=== PATIENT | female | born 2000 | race African-American/Black ===

== ENCOUNTER → 2023-10-28 | Emergency (ER) | payer OTHER, SELFPAY ==
--- NOTE | 2023-10-28 23:35 | EDPHYS ---
Physician Documentation [facility] Name: Anna Metzger Age: 23 yrs Sex: Female : 2000 Arrival Date: 10/28/2023 Time: 20:38 Bed 11 Private MD: ED Physician Robert Jasso HPI: 10/27 21:24 This 23 yrs old Black Female presents to ER via Wheelchair with complaints of Vaginal sb4 Pain. 21:25 the patient presents with a swollen area of the groin. Description: draining, sb4 erythematous, swollen. Onset: The symptoms/episode began/occurred 4 day(s) ago. Possible cause(s): ingrown hair. Associated signs and symptoms: Pertinent positives: drainage, erythema, Pertinent negatives: fever. Modifying factors: the symptoms are alleviated by nothing, the symptoms are aggravated by nothing. The patient has not experienced similar symptoms in the past. The patient has not recently seen a physician. 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 - Social history:: Smoking status: Patient reports the use of cigarette tobacco products, denies chronic smoking, but will smoke occasionally. ROS: 21:25 Constitutional: Negative for fever, chills, and weight loss, sb4 21:25 : Positive for pelvic pain, 21:25 All other systems are negative, Exam: 21:25 Constitutional: This is a well developed, well nourished patient who is awake, alert, sb4 and in no acute distress. Head/Face: Normocephalic, atraumatic. Eyes: Extra-ocular motions intact. Periorbital areas with no swelling, redness, or edema. ENT: Mucous membranes moist. Vital Signs: 21:15 BP 100 / 62; Pulse 104; Resp 17; Temp 98.5(O); Pulse Ox 100% on R/A; Weight 70.31 kg; kd3 Height 5 ft. 8 in. ; 21:15 Body Mass Index 23.57 (70.31 kg, 172.72 cm) kd3 MDM: 21:15 Patient medically screened. sb4 23:32 Data reviewed: vital signs, nurses notes, and as a result, I will discharge patient. sb4 Historians other than the Patient: Friend: friend. 23:35 ED course: patient left after my assessment in triage. I was unable to perform a full sb4 exam given the lack of privacy in triage and therefore unable to determine the extent/severity of her complaint. 10/27 21:23 Order name: Genny. Order: gown sb4 Administered Medications: No medications were administered Disposition: 10/28 04:04 Co-signature as Attending Physician, Robert Jasso MD I agree with the assessment sp4 and plan of care. I reviewed the patient's care provided by the Advanced Practice Provider and agree with the diagnosis and treatment plan. Disposition Summary: 10/28/23 23:35 Discharge Ordered Notes: Location: Home sb4 Condition: Undetermined sb4 Diagnosis - labial abscess - suspected sb4 Followup: sb4 - With: Emergency Department - When: As needed - Reason: Trouble breathing, Worsening of condition Forms: - Medication Reconciliation Form sb4 - Thank You Letter sb4 - Antibiotic Education sb4 - Prescription Opioid Use sb4 - Patient Portal Instructions sb4 - Leadership Thank You Letter sb4 Signatures: Yadira Armas, RN RN kd3 Marta Philippe PA-C PAGordon sb4 Robert Jasso MD MD sp4 Corrections: (The following items were deleted from the chart) 10/27 23:35 23:35 ED course: patient left after my assessment in triage. I was unable to perform a sb4 full exam given the lack of privacy in triage. sb4
--- NOTE | 2023-10-28 23:35 | ER ---
Nurse's Notes [facility] Name: Anna Metzger Age: 23 yrs Sex: Female : 2000 Arrival Date: 10/28/2023 Time: 20:38 Bed 11 Private MD: Diagnosis: labial abscess - suspected Presentation: 10/27 21:16 Coronavirus screen: Vaccine status: Patient reports being unvaccinated. Ebola Screen: kd3 No symptoms or risks identified at this time. Initial Sepsis Screen: Does the patient meet any 2 criteria? No. Patient's initial sepsis screen is negative. Does the patient have a suspected source of infection? No. Patient's initial sepsis screen is negative. Risk Assessment: Do you want to hurt yourself or someone else? Patient reports no desire to harm self or others. Onset of symptoms was October 24, 2023. 21:16 Method Of Arrival: Wheelchair kd3 21:18 Chief complaint: Chief complaint: Patient states: My vagina is irritated and the right kd3 side is very swollen. I did not injure myself but i do shave and i shaved a couple of weeks ago. It feels like there is a bump there. 21:18 Acuity: JORGE 4 kd3 Triage Assessment: 21:16 General: Appears in no apparent distress. Behavior is calm, cooperative. Pain: kd3 Complains of pain in groin. 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 - Social history:: Smoking status: Patient reports the use of cigarette tobacco products, denies chronic smoking, but will smoke occasionally. Screenin:38 Nutritional screening: No deficits noted. Tuberculosis screening: No symptoms or risk lg3 factors identified. 23:[address] [facility] ED Fall Risk Assessment (Adult) History of falling in the last 3 months, lg3 including since admission No falls in past 3 months (0 pts) Confusion or Disorientation No (0 pts) Intoxicated or Sedated No (0 pts) Impaired Gait No (0 pts) Mobility Assist Device Used No (0 pt) Altered Elimination No (0 pt) Score/Fall Risk Level 0 - 2 = Low Risk. Assessment: 23:30 General: pt called from lobby X2. no response. provider notified. lg3 Vital Signs: 21:15 BP 100 / 62; Pulse 104; Resp 17; Temp 98.5(O); Pulse Ox 100% on R/A; Weight 70.31 kg; kd3 Height 5 ft. 8 in. ; 21:15 Body Mass Index 23.57 (70.31 kg, 172.72 cm) kd3 ED Course: 20:47 Patient arrived in ED. gm2 20:47 Marta Philippe [facility] sb4 20:47 Robert Jasso MD is Attending Physician. sb4 21:16 Arm band placed on left wrist. kd3 21:20 Triage completed. kd3 23:12 Patient's name was called from ER [employer]. No response. lg3 23:30 Patient's name was called from ER [employer]. No response. lg3 23:34 Danielle Diaz RN is Primary Nurse. lg3 23:38 Patient did not have IV access during this emergency room visit. lg3 23:38 No provider procedures requiring assistance completed. lg3 Administered Medications: No medications were administered Medication: 23:38 VIS not applicable for this client. lg3 Outcome: 23:35 Discharge ordered by . sb4 23:36 Discharged to Unknown lg3 23:36 Condition: stable 23:36 Discharge instructions given to PT. provider discussed with PT before PT departure 23:38 Patient left the ED. lg3 Signatures: Danielle Diaz, RN RN lg3 Yadira Armas RN RN kd3 Marta Philippe PA-C PA-C sb4 Margret Johnson gm2 Corrections: (The following items were deleted from the chart) 23:35 23:30 Patient's name was called from ER [employer]. No response. Unable to locate patient. lg3 Will disposition as left without being seen by a provider. lg3
[2023-10-29 00:01] VITALS: BP 100/62; TEMP 98.5; O2SAT 100
== END ==
LOC: ER 20:38
DX: R10.2 Pelvic and perineal pain (principal)
CPT/HCPCS: 99282

== ENCOUNTER → 2023-10-29 | Emergency (ER) | payer SELFPAY ==
[~2023-10-29] MED LIST: BUPIVACAINE 0.5% PF 10 ML VIAL ONE; CLINDAMYCIN 600MG/D5W 50 ML IV ONE; LIDOCAINE 1% MPF 5 ML VIAL ONE; MORPHINE 4 MG/ML SYR ONE; NA CHLORIDE 0.9% 1,000 ML ONE
[2023-10-30 00:52] LABS: Specific Gravity > 1.030 (1.005-1.030)
[2023-10-30 00:53] LABS: Urine Bacteria None Seen /HPF (<20); Urine Mucus Slight /HPF (None Seen); Urine RBC <5 /HPF (None Seen)
[2023-10-30 01:51] LABS: Absolute Basophils 0.1 K/uL (0-0.5); Absolute Eosinophils 0.2 K/uL (0-0.5); Absolute Lymphocytes (CBC) 1.8 K/uL (0.7-4.9); Eosinophils % 3.5 % (0-4.4); Hematocrit 35.9 % (36.0-45.0); Hemoglobin 11.8 g/dL (12.0-15.0); Lymphocytes % 32.2 % (15.3-44.8); MPV 8.1 fL (7.6-11.3); Platelets 287 thou/uL (152-406); RBC Red Blood Cell Count 4.22 M/uL (3.86-4.86)
[2023-10-30 01:59] LABS: Anion Gap 7.5 mEq/L (5.0-15.0); Potassium 3.5 mEq/L (3.5-5.1)
--- NOTE | 2023-10-30 02:35 | EDPHYS ---
Physician Documentation [facility] Name: Anna Metzger Age: 23 yrs Sex: Female : 2000 Arrival Date: 10/29/2023 Time: 23:11 Bed 5 Private MD: ED Physician Robert Jasso HPI: 10/29 00:00 This 23 yrs old Black Female presents to ER via Wheelchair with complaints of Vaginal cp Pain. 00:00 The patient presents with genital abscess. 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 Flu vaccine is not up to date. - Social history:: Smoking status: Patient reports the use of cigarette tobacco products, denies chronic smoking, but will smoke occasionally, Patient/guardian denies using alcohol, street drugs. ROS: 10/29 00:05 : Positive for of the right labia majora, abscess, Negative for urinary symptoms, cp flank pain, vaginal bleeding, 00:05 Constitutional: Negative for body aches, chills, fever, poor PO intake, cp 00:05 Abdomen/GI: Negative for abdominal pain, vomiting, diarrhea, constipation, 00:05 All other systems are negative, Exam: 00:10 Constitutional: The patient appears in no acute distress, alert, awake, non-toxic, well cp developed, well nourished, uncomfortable, 00:10 Head/Face: Normocephalic, atraumatic. cp 00:10 Cardiovascular: Rate: tachycardic, 00:10 Respiratory: the patient does not display signs of respiratory distress, Respirations: normal, no use of accessory muscles, no retractions, labored breathing, is not present, 00:10 Abdomen/GI: Inspection: abdomen appears normal, Palpation: abdomen is soft and non-tender, in all quadrants, 00:10 : Pelvic Exam: External exam: exam of right labia majora with swelling, induration, small abscess with mild erythema noted, 00:10 Neuro: Orientation: to person, place \T\ time. Mentation: is normal, Vital Signs: 10/28 23:21 BP 120 / 60; Pulse 97; Resp 16 S; Temp 98(TE); Pulse Ox 98% on R/A; Weight 69.85 kg lg3 (R); Height 5 ft. 8 in. (R); 10/29 00:13 BP 117 / 72; Pulse 116; Pulse Ox 100% on R/A; Pain 5/10; tm6 01:52 Pain 0/10; tm6 02:45 BP 109 / 65; Pulse 104; Resp 18; Temp 97.3(TE); Pulse Ox 100% on R/A; Pain 0/10; tm6 10/28 23:21 Body Mass Index 23.42 (69.85 kg, 172.72 cm) lg3 10/29 00:13 Pain Scale: Adult tm6 01:52 Pain Scale: Adult tm6 02:45 Pain Scale: Adult tm6 Procedures: 00:58 I \T\ D: Incision and drainage was performed for an abscess of the right labia majora cp Prepped with Betadine, Anesthetized with 4 ccs of mixture 1% lidocaine w/o epi and 0.5% marcaine. Incised with #11 blade. Drained small amount bloody fluid. Packed with iodoform gauze, Dressing: sterile 4x4 gauze, the patient tolerated the procedure well. MDM: 10/28 23:26 Patient medically screened. cp 10/29 00:02 Order name: CBC with Diff; Complete Time: 02:34 cp 10/29 00:02 Order name: BMP; Complete Time: 02:34 cp 10/29 00:02 Order name: Urine Microscopic Only; Complete Time: 01:12 cp 10/29 01:13 Interpretation: Reviewed. cp 10/29 00:02 Order name: Test, Urine; Complete Time: 01:12 cp 10/29 01:13 Interpretation: Reviewed. cp 10/28 23:52 Order name: Pelvic Exam Setup; Complete Time: 00:02 cp 10/29 00:02 Order name: IV; Complete Time: 01:17 cp 10/29 00:02 Order name: I\T\D Setup; Complete Time: 01:17 cp Administered Medications: 10/29 01:16 Drug: morphine IVP or IV 4 mg IVP once over 4 mins Route: IVP; Infused Over: 4 mins; tm6 Site: right antecubital; 01:52 Follow up: Pain 0/10 Adult; Response: Marked relief of symptoms tm6 01:16 Drug: Clindamycin IVPB 600 mg IVPB once over 30 mins; (mix in 50 mL) Route: IVPB; tm6 Infused Over: 30 mins; Site: right antecubital; 01:45 Follow up: Response: No adverse reaction; IV Status: Completed infusion tm6 01:17 Drug: Lidocaine Infiltration (1 %) 5 ml 5 ml Infiltration once; to bedside {Note: tm6 administered by Braydon SCHAEFFER.} Volume: 5 ml; Route: Infiltration; 01:17 Drug: Bupivacaine Infiltration (0.5 %) 5 ml 10 ml Infiltration once Volume: 10 ml; tm6 Route: Infiltration; 01:17 Follow up: administered by Braydon SCHAEFFER tm6 01:17 Drug: NS 0.9% IV 1000 ml IV at 1 bolus Per protocol; 1000 mL bolus Route: IV; Rate: 1 tm6 bolus; Site: right antecubital; 01:52 Follow up: Response: No adverse reaction; IV Status: Completed infusion; IV Intake: tm6 1000ml Disposition: 02:34 Co-signature as Attending Physician, Robert Jasso MD I agree with the assessment sp4 and plan of care. I reviewed the patient's care provided by Advanced Practice Provider \T\ agree w/ the diagnosis \T\ care plan. I personally saw the pt \T\ performed a substantive portion of the visit, incldng all aspects of the (History/Exam/Medical Decision Making). Disposition Summary: 10/30/23 02:35 Discharge Ordered Notes: Location: Home sp4 Problem: new sp4 Symptoms: have improved sp4 Condition: Stable sp4 Diagnosis - Cutaneous abscess of other sites - right labia majora sp4 - Abscess of labia majora right side sp4 Followup: cp - With: Monica Farooq MD - When: 1 - 2 days - Reason: Wound Recheck Discharge Instructions: - Skin Abscess cp - Discharge Summary Sheet tm6 Forms: - Patient Portal Instructions sp4 - Work release form tm6 Prescriptions: - Clindamycin HCl 300 mg Oral Capsule - take 1 capsule ORAL route every 6 hours for 10 days; 40 capsule; Refills: 0, cp Product Selection Permitted - Diclofenac Sodium 75 mg Oral Tablet Sustained Release - take 1 tablet ORAL route 2 times per day; 30 tablet; Refills: 0, Product cp Selection Permitted - Bactrim DS 800-160 mg Oral Tablet - take 1 tablet ORAL route every 12 hours for 10 days; 20 tablet; Refills: 0, cp Product Selection Permitted Signatures: Dispatcher [employer] EDBraydon Pro PA PA cp Able, Lacie RN RN lg3 Robert Jasso MD MD sp4 Serena Tiwari RN RN tm6
--- NOTE | 2023-10-30 02:35 | ER ---
Nurse's Notes [facility] Name: Anna Metzger Age: 23 yrs Sex: Female : 2000 Arrival Date: 10/29/2023 Time: 23:11 Bed 5 Private MD: Diagnosis: Cutaneous abscess of other sites-right labia majora;Abscess of labia majora right side Presentation: 10/28 23:21 Chief complaint: Patient states: abscess on left labia X3 days and worsening. lg3 Coronavirus screen: Client denies travel out of the [place] in the last 14 days. At this time, the client does not indicate any symptoms associated with coronavirus-19. Ebola Screen: No symptoms or risks identified at this time. Initial Sepsis Screen: Does the patient meet any 2 criteria? No. Patient's initial sepsis screen is negative. Does the patient have a suspected source of infection? No. Patient's initial sepsis screen is negative. Risk Assessment: Do you want to hurt yourself or someone else? Patient reports no desire to harm self or others. Onset of symptoms is unknown. 23:21 Method Of Arrival: Wheelchair lg3 23:21 Acuity: JORGE 3 lg3 Triage Assessment: 23:23 General: Appears in no apparent distress. comfortable, Behavior is calm, cooperative. lg3 Pain: Complains of pain in groin. EENT: No deficits noted. No signs and/or symptoms were reported regarding the EENT system. Neuro: No deficits noted. Samuel Agitation-Sedation Scale (RASS): 0 - Alert and Calm Level of Consciousness is awake, alert, obeys commands, Oriented to person, place, time, situation. Cardiovascular: No deficits noted. Denies chest pain, shortness of breath, Capillary refill < 3 seconds Clubbing of nail beds is absent JVD is absent Patient's skin is warm and dry. Respiratory: No deficits noted. Airway is patent Respiratory effort is even, unlabored, Respiratory pattern is regular, symmetrical. GI: No deficits noted. No signs and/or symptoms were reported involving the gastrointestinal system. : No deficits noted. No signs and/or symptoms were reported regarding the genitourinary system. Derm: Abscess located on right labia majora Reports pain that is 9 out of 10 on a pain scale. Musculoskeletal: No deficits noted. No signs and/or symptoms reported regarding the musculoskeletal system. Circulation, motion, and sensation intact. Range of motion: intact in all extremities. 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 Flu vaccine is not up to date. - Social history:: Smoking status: Patient reports the use of cigarette tobacco products, denies chronic smoking, but will smoke occasionally, Patient/guardian denies using alcohol, street drugs. Screenin/13 00:16 [facility] ED Fall Risk Assessment (Adult) History of falling in the last 3 months, tm6 including since admission No falls in past 3 months (0 pts) Confusion or Disorientation No (0 pts) Intoxicated or Sedated No (0 pts) Impaired Gait No (0 pts) Mobility Assist Device Used No (0 pt) Altered Elimination No (0 pt) Score/Fall Risk Level 0 - 2 = Low Risk Oriented to surroundings, Maintained a safe environment. Abuse screen: Denies threats or abuse. Denies injuries from another. Nutritional screening: No deficits noted. Tuberculosis screening: No symptoms or risk factors identified. Assessment: 00:12 General: Appears in no apparent distress. Behavior is calm, cooperative. Pain: tm6 Complains of pain in right labia majora Pain currently is 5 out of 10 on a pain scale. Aggravated by repositioning. 00:13 Neuro: Level of Consciousness is awake, alert, obeys commands, Oriented to person, tm6 place, time, situation. Cardiovascular: Capillary refill < 3 seconds Patient's skin is warm and dry. Respiratory: Airway is patent Respiratory effort is even, unlabored, Respiratory pattern is regular, symmetrical. GI: Abdomen is flat, non-distended. : Lesions noted Swelling noted on labia Reports pain in suprapubic area. EENT: No signs and/or symptoms were reported regarding the EENT system. Derm: Abscess located on right labia majora is quarter sized, has purulent drainage, is raised, was lanced by patient prior to arrival. Musculoskeletal: No signs and/or symptoms reported regarding the musculoskeletal system. 02:45 Reassessment: Patient and/or family updated on plan of care and expected duration. Pain tm6 level reassessed. Patient is alert, oriented x 3, equal unlabored respirations, skin warm/dry/pink. Patient states feeling better. Vital Signs: 10/28 23:21 BP 120 / 60; Pulse 97; Resp 16 S; Temp 98(TE); Pulse Ox 98% on R/A; Weight 69.85 kg lg3 (R); Height 5 ft. 8 in. (R); 10/29 00:13 BP 117 / 72; Pulse 116; Pulse Ox 100% on R/A; Pain 5/10; tm6 01:52 Pain 0/10; tm6 02:45 BP 109 / 65; Pulse 104; Resp 18; Temp 97.3(TE); Pulse Ox 100% on R/A; Pain 0/10; tm6 10/28 23:21 Body Mass Index 23.42 (69.85 kg, 172.72 cm) lg3 10/29 00:13 Pain Scale: Adult tm6 01:52 Pain Scale: Adult tm6 02:45 Pain Scale: Adult tm6 ED Course: 10/28 23:18 Patient arrived in ED. gm2 23:19 Braydon Lepe PA is PHCP. cp 23:19 Robert Jasso MD is Attending Physician. cp 23:23 Triage completed. lg3 23:23 Arm band placed on left wrist. 3 10/29 00:02 Serena Tiwari, IMANI is Primary Nurse. tm6 00:16 Patient has correct armband on for positive identification. Placed in gown. Bed in low tm6 position. Call light in reach. Side rails up X2. Provided Education on: plan of care. Client placed on continuous cardiac and pulse oximetry monitoring. NIBP monitoring applied. Pulse ox on. NIBP on. Door closed. Noise minimized. Warm blanket given. 00:16 Urine collected: clean catch specimen, ashu colored. Patient maintains SpO2 saturation tm6 greater than 95% on room air. 00:17 Test, Urine Sent. tm6 00:17 Urine Microscopic Only Sent. tm6 01:17 CBC with Diff Sent. tm6 01:18 BMP Sent. tm6 01:18 Assist provider with I \T\ D: of an abscess on right right labia majora Set up I\T\D tray. tm 6 Performed by Braydon SCHAEFFER Wound packed. iodoform gauze, Dressing with 4X4s, tape Patient tolerated well. Inserted saline lock: 22 gauge in right antecubital area, using aseptic technique. 02:34 Monica Farooq MD is Referral Physician. sp4 02:46 IV discontinued, intact, bleeding controlled, No redness/swelling at site. Pressure tm6 dressing applied. Administered Medications: 01:16 Drug: morphine IVP or IV 4 mg IVP once over 4 mins Route: IVP; Infused Over: 4 mins; tm6 Site: right antecubital; 01:52 Follow up: Pain 0/10 Adult; Response: Marked relief of symptoms tm6 01:16 Drug: Clindamycin IVPB 600 mg IVPB once over 30 mins; (mix in 50 mL) Route: IVPB; tm6 Infused Over: 30 mins; Site: right antecubital; 01:45 Follow up: Response: No adverse reaction; IV Status: Completed infusion tm6 01:17 Drug: Lidocaine Infiltration (1 %) 5 ml 5 ml Infiltration once; to bedside {Note: tm6 administered by Braydon SCHAEFFER.} Volume: 5 ml; Route: Infiltration; 01:17 Drug: Bupivacaine Infiltration (0.5 %) 5 ml 10 ml Infiltration once Volume: 10 ml; tm6 Route: Infiltration; 01:17 Follow up: administered by Braydon SCHAEFFER tm6 01:17 Drug: NS 0.9% IV 1000 ml IV at 1 bolus Per protocol; 1000 mL bolus Route: IV; Rate: 1 tm6 bolus; Site: right antecubital; 01:52 Follow up: Response: No adverse reaction; IV Status: Completed infusion; IV Intake: tm6 1000ml Medication: 00:16 VIS not applicable for this client. tm6 Intake: 01:52 IV: 1000ml; Total: 1000ml. tm6 Outcome: 02:35 Discharge ordered by . sp4 02:45 Discharged to home ambulatory, with significant other, tm6 02:45 Condition: stable 02:45 Discharge instructions given to patient, significant other, Instructed on discharge instructions, follow up and referral plans. no drinking with medication, medication usage, Demonstrated understanding of instructions, follow-up care, medications, Prescriptions given X 3, 02:46 Patient left the ED. tm6 Signatures: Braydon Lepe PA PA cp Able, Lacie, RN RN lg3 Robert Jasso MD MD sp4 Margret Johnson gm2 Serena Tiwari, IMANI RN tm6
[2023-10-30 03:17] VITALS: BP 109/65; TEMP 97.3; O2SAT 100
== END ==
LOC: ER 23:11
PROC: 0U9MXZZ Drainage of Vulva, External Approach (ICD-10-PCS; principal; 2023-10-29)
DX: N76.4 Abscess of vulva (principal)

== ENCOUNTER → 2023-10-31 | Emergency (ER) | payer OTHER ==
--- NOTE | 2023-11-01 01:24 | ER ---
Nurse's Notes [facility] Name: Anna Metzger Age: 23 yrs Sex: Female : 2000 Arrival Date: 10/31/2023 Time: 21:25 Bed IW10 Private MD: Diagnosis: Wound Check Presentation: 10/30 21:34 Chief complaint: Patient states: pt was recently here and had an I\T\D to right groin and as6 it was packed. pt reports packing is starting to come out and an odor is present. pt reports not starting her prescribed abx yet. Coronavirus screen: At this time, the client does not indicate any symptoms associated with coronavirus-19. Ebola Screen: No symptoms or risks identified at this time. Initial Sepsis Screen: Does the patient meet any 2 criteria? No. Patient's initial sepsis screen is negative. Does the patient have a suspected source of infection? No. Patient's initial sepsis screen is negative. Risk Assessment: Do you want to hurt yourself or someone else? Patient reports no desire to harm self or others. Onset of symptoms was October 31, 2023. 21:34 Method Of Arrival: Ambulatory as6 21:34 Acuity: JORGE 4 as6 Historical: - Allergies: 21:37 No Known Allergies; as6 - PMHx: 21:37 None; as6 - PSHx: 21:37 neck; as6 - Immunization history:: Adult Immunizations up to date. - Social history:: Smoking status: Patient reports the use of cigarette tobacco products, denies chronic smoking, but will smoke occasionally, Reported history of juuling and/or vaping. Assessment: 23:15 Reassessment: Patient called from lobby, no response. pf1 10/31 00:00 Reassessment: Patient called from [employer], no response. pf1 Vital Signs: 10/30 21:34 BP 124 / 95; Pulse 122; Resp 18 S; Temp 98.9(TE); Pulse Ox 98% on R/A; Weight 69.85 kg as6 (R); Height 5 ft. 8 in. (R); Pain 0/10; 21:34 Body Mass Index 23.42 (69.85 kg, 172.72 cm) as6 21:34 Pain Scale: Adult as6 ED Course: 21:27 Patient arrived in ED. tiny6 21:34 Arm band placed on. as6 21:36 Braydon Lepe PA is PHCP. cp 21:36 Robert Jasso MD is Attending Physician. cp 21:37 Triage completed. as6 Administered Medications: No medications were administered Outcome: 10/31 00:00 Eloped from waiting room, after seeing physician Time discovered patient gone: October pf2023 at 23:15 05:35 Patient left the ED. pf1 Signatures: Braydon Lepe PA PA cp Jeffries, Jennifer jj6 Vince Roberts, RN RN as6 Jerilyn Bain RN RN pf1
--- NOTE | 2023-11-01 01:25 | EDPHYS ---
Physician Documentation [facility] Name: Anna Metzger Age: 23 yrs Sex: Female : 2000 Arrival Date: 10/31/2023 Time: 21:25 Bed [id number] Private MD: ED Physician Robert Jasso HPI: 10/30 21:45 This 23 yrs old Black Female presents to ER via Ambulatory with complaints of Abscess. cp 21:45 Patient presents to ED for recheck of: abscess. The affected area is on the right labia cp majora. Previous treatment: the care was rendered at [facility], Treatment type: The patient's original treatment included IV antibiotics, clindamycin, oral antibiotics, Bactrim, clindamycin. Historical: - Allergies: 21:37 No Known Allergies; as6 - PMHx: 21:37 None; as6 - PSHx: 21:37 neck; as6 - Immunization history:: Adult Immunizations up to date. - Social history:: Smoking status: Patient reports the use of cigarette tobacco products, denies chronic smoking, but will smoke occasionally, Reported history of juuling and/or vaping. ROS: 21:50 Constitutional: Negative for body aches, chills, fever, cp 21:50 Respiratory: Negative for cough, shortness of breath, wheezing, 21:50 Abdomen/GI: Negative for vomiting, diarrhea, constipation, 21:50 Skin: Positive for abscess, of the right labia majora, 21:50 All other systems are negative, Exam: 21:55 Constitutional: The patient appears in no acute distress, alert, awake, non-toxic, well cp developed, well nourished, 21:55 Head/Face: Normocephalic, atraumatic. cp 21:55 Eyes: Periorbital structures: appear normal, Conjunctiva: normal, no exudate, no injection, Lids and lashes: appear normal, bilaterally, 21:55 ENT: External ear(s): are unremarkable, Nose: is normal, Mouth: Lips: moist, Posterior pharynx: Airway: no evidence of obstruction, patent, 21:55 Chest/axilla: Inspection: normal, 21:55 Cardiovascular: Rate: tachycardic, 21:55 Respiratory: the patient does not display signs of respiratory distress, Respirations: normal, no use of accessory muscles, no retractions, labored breathing, is not present, 21:55 Abdomen/GI: Exam negative for discomfort, distension, guarding, Inspection: abdomen appears normal, Vital Signs: 21:34 BP 124 / 95; Pulse 122; Resp 18 S; Temp 98.9(TE); Pulse Ox 98% on R/A; Weight 69.85 kg as6 (R); Height 5 ft. 8 in. (R); Pain 0/10; 21:34 Body Mass Index 23.42 (69.85 kg, 172.72 cm) as6 21:34 Pain Scale: Adult as6 MDM: 21:41 Patient medically screened. cp 22:00 Differential diagnosis: cellulitis, abscess, sepsis. cp 22:00 Data reviewed: vital signs, nurses notes. cp Administered Medications: No medications were administered Disposition: 10/31 07:08 Co-signature as Attending Physician, Robert Jasso MD I agree with the assessment sp4 and plan of care. I reviewed the patient's care provided by the Advanced Practice Provider and agree with the diagnosis and treatment plan. Disposition Summary: 11/01/23 01:24 Eloped Notes: Disposition: after being seen by provider cp Reason: unknown cp Problem: an ongoing problem cp Condition: Stable cp Diagnosis - Wound Check cp Followup: cp - With: Emergency Department - When: As needed - Reason: Worsening of condition Signatures: Braydon Lepe PA PA cp Vince Roberts, RN RN as6 Robert Jasso MD MD sp4 Corrections: (The following items were deleted from the chart) 10/30 23:57 10/29 21:45 This 23 yrs old Black Female presents to ER via Ambulatory with complaints cp of Abscess. cp
[2023-11-01 05:47] VITALS: BP 124/95; TEMP 98.9; O2SAT 98
== END | disposition left against medical advice (07) ==
LOC: ER 21:25
DX: N76.4 Abscess of vulva (principal)
CPT/HCPCS: 99281